=== PATIENT | male | born 1970 | race Caucasian/White ===

== ENCOUNTER 2020-02-16 06:20 | Outpatient (REF) | payer BC, SELFPAY ==
[2020-02-16 11:24] LABS: MANUAL DIFF FLAG NO
[2020-02-16 11:42] LABS: Basophils Percent Auto 0.5 % (0-2); Eosinophils Absolute Auto 0.1 X10*3/uL (0.0-0.4); Eosinophils Percent Auto 1.6 % (0-4); Hematocrit 42.2 % (42-52); Hemoglobin 14.4 g/dl (14.0-18.0); Imm Gran Abs Auto 0.01 X10*3/uL (0.00-0.03); Imm Gran Pct Auto 0.2 % (0.0-0.4); Lymphocytes Absolute Auto 1.9 X10*3/uL (1.2-4.9); Lymphocytes Percent Auto 35.1 % (20-40); Mean Corpuscular HGB Conc 34.1 g/dl (31.0-36.0); Mean Corpuscular Hemoglobin 31.1 pg (27.0-33.0); Mean Corpuscular Volume 91.1 fL (80-98); Mean Platelet Volume 9.5 fL (9.4-12.4); Monocytes Absolute Auto 0.7 X10*3/uL (0.1-1.2); Neutrophils Absolute Auto 2.7 X10*3/uL (2.0-8.3); Neutrophils Percent Auto 49.6 % (45-73); Platelet Count 296 X10*3/uL (160-400); Red Blood Count 4.63 X10*6/uL (4.60-5.80); White Blood Count 5.5 X10*3/uL (4.8-10.8)
[2020-02-16 12:16] LABS: Alanine Aminotransferase 17 U/L (0-40); Albumin Level 4.4 g/dL (3.5-5.0); Alkaline Phosphatase 59 U/L (39-117); Anion Gap 11 (12-20); Aspartate Amino Transferase 25 U/L (5-37); Bilirubin Total 1.3 mg/dL (0.0-1.0); Blood Urea Nitrogen 10 mg/dL (9-16); Calcium 8.5 mg/dL (8.4-10.2); Carbon Dioxide 29 mmol/L (22-29); Chloride 103 mmol/L (96-108); Cholesterol 196 mg/dL; Estimated Glomerular Filt Rate > 60; Glucose Fasting 86 mg/dL (60-99); HDL Cholesterol 58 mg/dL; LDL Cholesterol Calculated 122 mg/dl; Potassium 4.2 mmol/l (3.3-5.1); Sodium 139 mmol/L (135-145); Total Protein 7.1 g/dL (6.5-8.0); Triglycerides 83 mg/dL
== END 2020-02-16 06:21 | disposition home or self-care (01) ==
LOC: HO.HMGCLDS 06:20
PROVIDERS: PCP Internal Medicine; Visit Provider Internal Medicine
DX: Z00.00 Encounter for general adult medical examination without abnormal findings (principal)
CPT/HCPCS: 36415; 80053; 80061; 85025

== ENCOUNTER 2020-09-12 06:05 | Outpatient (REF) | payer BC, SELFPAY ==
[2020-09-12 11:33] LABS: MANUAL DIFF FLAG NO
[2020-09-12 11:48] LABS: Basophils Absolute Auto 0.1 X10*3/uL (0.0-0.2); Basophils Percent Auto 0.8 % (0-2); Eosinophils Absolute Auto 0.1 X10*3/uL (0.0-0.4); Eosinophils Percent Auto 1.8 % (0-4); Hematocrit 43.4 % (42-52); Hemoglobin 14.9 g/dl (14.0-18.0); Imm Gran Abs Auto 0.01 X10*3/uL (0.00-0.03); Imm Gran Pct Auto 0.2 % (0.0-0.4); Lymphocytes Absolute Auto 2.3 X10*3/uL (1.2-4.9); Lymphocytes Percent Auto 38.2 % (20-40); Mean Corpuscular HGB Conc 34.3 g/dl (31.0-36.0); Mean Corpuscular Hemoglobin 31.2 pg (27.0-33.0); Mean Corpuscular Volume 90.8 fL (80-98); Mean Platelet Volume 9.5 fL (9.4-12.4); Monocytes Absolute Auto 0.8 X10*3/uL (0.1-1.2); Monocytes Percent Auto 12.8 % (2-11); Neutrophils Absolute Auto 2.8 X10*3/uL (2.0-8.3); Neutrophils Percent Auto 46.2 % (45-73); Platelet Count 304 X10*3/uL (160-400); Red Blood Count 4.78 X10*6/uL (4.60-5.80); Red Cell Distribution Width 12.4 % (11.0-16.0)
[2020-09-12 12:22] LABS: Prostate Specific Antigen 0.63 ng/mL (<0.05-4.0)
[2020-09-12 12:32] LABS: Anion Gap 14 (12-20); Blood Urea Nitrogen 13 mg/dL (9-16); Calcium 9.5 mg/dL (8.4-10.2); Carbon Dioxide 29 mmol/L (22-29); Chloride 101 mmol/L (96-108); Estimated Glomerular Filt Rate > 60; Glucose Random 78 mg/dL (60-115); Potassium 4.3 mmol/L (3.3-5.1); Sodium 140 mmol/L (135-145)
== END 2020-09-12 06:06 | disposition home or self-care (01) ==
LOC: HO.HMGCLDS 06:05
PROVIDERS: PCP Internal Medicine; Visit Provider Internal Medicine
DX: R03.0 Elevated blood-pressure reading, without diagnosis of hypertension (principal); Z80.42 Family history of malignant neoplasm of prostate; Z12.5 Encounter for screening for malignant neoplasm of prostate
CPT/HCPCS: 36415; 80048; 84153; 85025

== ENCOUNTER 2022-05-16 07:19 | Day surgery (SDC) | payer BC, SELFPAY ==
[2022-05-16 07:31] VITALS: BMI 25.7
[2022-05-16 07:35] VITALS: BP 156/77; PULSE 50; RESP 16; TEMP 36.3; O2SAT 100
[2022-05-16] MEDS: Lactated Ringers 1,000 ML 50 ML IVCONT (07:46)
--- NOTE | 2022-05-16 08:10 | P.CONAN_ITS ---
HPI - Anesthesia Eval Consult details Narrative: Colonoscopy [facility] Past Medical History Medical History (Updated 05/15/22 @ 10:18 by Alena Carlson RN) Borderline anemia HTN (hypertension) Family History Family history of problems with anesthesia: No Surgical History History of Problems with Anesthesia: No Social History Social History Patient Tobacco Use Status: Never used Tobacco Use of substances other than those prescribed or required for medical reasons: No Are you DNR?: No Advance Directives: No Advance Directives Information Provided: Yes Meds Allergies Allergy/AdvReac Type Severity Reaction Status Date / Time No Known Allergies Allergy Unverified 05/15/22 08:43 Active Medications: Current Medications Lactated Ringer's (Lr) 1,000 mls @ 50 mls/hr IVCONT .Q20H MAMADOU Last Admin: 05/16/22 07:46 Dose: 50 mls/hr Sodium Biphosphate/Sodium Phosphate (Sodium Phosphate,Baker-Dibasic 133 Ml Enema) 133 ml AL ONCE PRN PRN Reason: Poor Colonoscopy Prep Results Home Medications Medication Instructions Recorded Confirmed Last Taken Type Fish Oil 05/15/22 05/02/22 History magnesium 05/15/22 Unknown History multivitamin 05/15/22 05/15/22 Unknown History Exam Exam Date and Time: May 16, 2022 0810 Height,Weight and Vital Signs: Height 5 ft 3 in Weight 65.771 kg Last Vital Signs Temp 97.4 F 05/16/22 07:35 Pulse 50 05/16/22 07:35 Resp 16 05/16/22 07:35 BP 156/77 H 05/16/22 07:35 Pulse Ox 100 05/16/22 07:35 O2 Del Method 05/16/22 07:35 Airway Mallampati Class: I TM Dist: >3cm Neck ROM: Full Loose/Missing/Broken Teeth: No Heart: rrr Lungs: cta Assessment and Plan Final Anesthetic Review Family History of Problems with Anesthesia: No History of Problems with Anesthesia: No NPO: Yes ASA Class: I Final Preanesthetic Review: Meds/Allgs Chart Reviewed, Consent Obtained/Reviewed and Anes Risks/Benef Reviewed Patient Risk: Low Procedure Risk: Low Anesthetic Plan Anesthetic Plan: MAC: Disposition: Standard PACU
--- NOTE | 2022-05-16 09:23 | PM.OP ---
Brief Operative Note Date of Service: 05/16/22 Pre-op diagnosis: Screening Post-op diagnosis: other (Diverticulosis) Procedure: Colonoscopy to the cecum Surgeon: Zeyad Cardoso Anesthesia: MAC Was an Director Learning And Development used for this Procedure?: No Estimated blood loss (mL): 0 Pathology: none sent Condition: stable Disposition: PACU
[2022-05-16 09:26] VITALS: BP 116/69; PULSE 57; RESP 18; TEMP 36.2; O2SAT 98
[2022-05-16 09:41] VITALS: BP 117/69; PULSE 55; RESP 18; TEMP 36.8; O2SAT 100
[2022-05-16 09:56] VITALS: BP 123/78; PULSE 44; RESP 18; TEMP 36.3; O2SAT 100
--- NOTE | 2022-05-16 10:34 | OP_ITS ---
SURGEON: Zeyad Cardoso MD INDICATIONS: The patient presents for evaluation of colorectal cancer screening. Full consent was obtained from him for this, including risks of bleeding and perforation. PREOPERATIVE DIAGNOSIS: Colorectal cancer screening. POSTOPERATIVE DIAGNOSIS: Colorectal cancer screening, mild sigmoid diverticulosis, and small internal hemorrhoids. PROCEDURE PERFORMED: Colonoscopy to the cecum. ESTIMATED BLOOD LOSS: COMPLICATIONS: ANESTHESIA: Monitored anesthesia care. ASSISTANTS: SPECIMENS: PROCEDURE IN DETAIL: The patient was placed in left lateral decubitus position. The digital rectal exam revealed no abnormalities. The Olympus video pediatric colonoscope was entered into the rectum and advanced easily to the cecum. Once in the cecum, I did identify normal appearing cecal polyps. The appendicial orifice reveal normal appearing cecal pouch with appendiceal orifice and normal-appearing ileocecal valve. The entire cecum and ileocecal valve appeared normal. The scope was then slowly withdrawn assessing all mucosal surfaces carefully. Preparation was excellent. I did not visualize any sign of polyps, colitis, or angiodysplasias. There were occasional diverticula in the sigmoid colon. In the rectum, scope was retroflexed, visualizing small internal hemorrhoids, but no other pathology. The rectal mucosa appeared normal. The scope was straightened and withdrawn from the patient. He tolerated the procedure well and was returned to the recovery area in stable condition. IMPRESSION: 1. Occasional sigmoid diverticulosis. 2. Small internal hemorrhoids. PLAN: Given his negative exam and negative family history, I would recommend a repeat colonoscopy in 10 years for further screening. He will otherwise see me on a p.r.n. basis. Zeyad Cardoso MD RMW/MODL / [id number] MTDD
== END 2022-05-16 10:10 | disposition home or self-care (01) ==
PROVIDERS: PCP Internal Medicine; Visit Provider Internal Medicine
PROC: 0DJD8ZZ Inspection of Lower Intestinal Tract, Via Natural or Artificial Opening Endoscopic (ICD-10-PCS; CPT 45378; principal; 2022-05-16 08:30)
DX: Z12.11 Encounter for screening for malignant neoplasm of colon (principal); K57.30 Diverticulosis of large intestine without perforation or abscess without bleeding; K55.30 Necrotizing enterocolitis, unspecified; K64.8 Other hemorrhoids; I10 Essential (primary) hypertension
CPT/HCPCS: 45378

== ENCOUNTER 2022-10-17 06:01 | Outpatient (REF) | payer BC, SELFPAY ==
[2022-10-17 11:32] LABS: MANUAL DIFF FLAG NO
[2022-10-17 11:50] LABS: Basophils Percent Auto 0.9 % (0-2); Eosinophils Absolute Auto 0.1 X10*3/uL (0.0-0.4); Eosinophils Percent Auto 2.3 % (0-4); Hemoglobin 13.9 g/dl (14.0-18.0); Imm Gran Abs Auto 0.01 X10*3/uL (0.00-0.03); Imm Gran Pct Auto 0.2 % (0.0-0.4); Lymphocytes Absolute Auto 1.4 X10*3/uL (1.2-4.9); Mean Corpuscular HGB Conc 33.9 g/dl (31.0-36.0); Mean Corpuscular Hemoglobin 31.3 pg (27.0-33.0); Mean Corpuscular Volume 92.3 fL (80.0-98.0); Mean Platelet Volume 10.2 fL (9.4-12.4); Monocytes Absolute Auto 0.6 X10*3/uL (0.1-1.2); Monocytes Percent Auto 13.4 % (2-11); Neutrophils Absolute Auto 2.5 x10*3/uL (2.0-8.3); Neutrophils Percent Auto 54.2 % (45-73); Platelet Count 295 X10*3/uL (160-400); Red Blood Count 4.44 X10*6/uL (4.60-5.80); Red Cell Distribution Width 12.5 % (11.0-16.0); White Blood Count 4.7 X10*3/uL (4.8-10.8)
[2022-10-17 12:41] LABS: Prostate Specific Antigen 0.43 ng/mL (<0.05-4.0)
[2022-10-17 14:21] LABS: Alanine Aminotransferase 21 U/L (0-40); Albumin Level 4.3 g/dL (3.5-5.0); Alkaline Phosphatase 51 U/L (39-117); Anion Gap 14 (12-20); Aspartate Amino Transferase 24 U/L (5-37); Bilirubin Total 1.6 mg/dL (0.0-1.0); Blood Urea Nitrogen 11 mg/dL (9-16); Calcium 9.4 mg/dL (8.4-10.2); Carbon Dioxide 25 mmol/L (22-29); Chloride 106 mmol/L (96-108); Cholesterol 167 mg/dL; Estimated Glomerular Filt Rate > 60; Glucose Fasting 90 mg/dL (60-99); HDL Cholesterol 63 mg/dL; LDL Cholesterol Calculated 93 mg/dl; Potassium 3.9 mmol/L (3.3-5.1); Sodium 141 mmol/L (135-145); Total Protein 6.9 g/dL (6.5-8.0); Triglycerides 55 mg/dL
== END 2022-10-17 06:02 | disposition home or self-care (01) ==
LOC: HO.HMGCLDS 06:01
PROVIDERS: PCP Internal Medicine; Visit Provider Internal Medicine
DX: Z00.00 Encounter for general adult medical examination without abnormal findings (principal); Z12.5 Encounter for screening for malignant neoplasm of prostate; I25.10 Atherosclerotic heart disease of native coronary artery without angina pectoris; I42.9 Cardiomyopathy, unspecified
CPT/HCPCS: 36415; 80053; 80061; 84153; 85025

== ENCOUNTER 2024-10-19 08:58 | Outpatient (AMB) | payer BC, SELFPAY ==
--- NOTE | 2024-10-19 08:55 | A.OFFPC_ITS ---
Vital Signs 10/19/24 09:01 Height 5 ft 3 in Weight 60.328 kg BMI 23.6 BP 134/80 Blood Pressure Location Lt brachial Position Sitting Respiration 14 Pulse 54 Pulse Source Pulse Oximeter Temp 97.0 F Temp Source Temporal Artery Scan Pulse Oximetry (%) 99 Oxygen Delivery Method Room Air Intake Visit Reasons: routine Pathology Supervisor Required: No Accompanied by: Self / Same As Patient Allergies No Known Allergies Allergy (Verified 10/19/24 08:55) HPI HPI Comments History of Present Illness Details 54-year-old male with history of diverti culosis, anemia presents to the office today for management of chronic conditions, to establish care, and for annual physical exam. He currently lives at home with his and 2 children and feels safe there. He is employed at the [employer] and enjoys this. He is an avid runner and does report he follows a healthy diet. He reports he does go to the eye doctor annually as well as the dentist. He does not always wear sunscreen but denies any concerning lesions Concerns: None and 2 daughters, safe at home. works as [employer] Health maintenance: A screening colonoscopy 2022 with 10 year follow-up advised. Did show diverticulitis but no colon polyps Due for screening PSA Reviewed past medical, surgical, family, social history ROS: General: No fevers, malaise, unintentional weight loss HEENT: No blurred vision, diplopia. No sore throat, nasal congestion, rhinorrhea, sinus pain, ear pain. No hearing loss Neck - no adenopathy Cardiovascular: No chest pain, palpitations, or leg edema Respiratory: No shortness of breath, wheezing, cough GI: No dysphagia, odynophagia, globus sensation. No abdominal pain, nausea, vomiting, diarrhea, constipation, melena, hematochezia : No dysuria, hematuria, increased urinary frequency, decreased urinary output. No testicular swelling or pain. No penile discharge MSK: No myalgia, back pain, arthralgias Neuro: No headaches, weakness, paresthesias Psych: no depression/anxiery. No AH/VH. No SI/HI Skin: No rashes or lesions EXAM: Constitutional - Awake and Alert, No apparent distress Eyes - PERRLA, EOMI. Anicteric Ears - external ears normal, canals clear, TMs intact and pearly hamlin with good cone of light Nose- septum midline, nares clear, no sinus tenderness Mouth/throat- mucosa moist, tongue and uvula midline, no erythema/edema or tonsillar adenopathy. Neck-trachea midline, thyroid symmetric without palpable nodules, no adenopathy Cardiovascular - S1S2, RRR, No edema Respiratory - Normal lung expansion, Normal respiratory effort, No respiratory distress, CTA bilaterally Gastrointestinal - NT / ND; +BS; No rebound or guarding - No CVA tenderness Extremities - no calf tenderness bilaterally, no swelling Musculoskeletal - Normal inspection, normal ROM Skin - Warm/Dry, no concerning lesions Neurological - Alert & oriented x3, CN II-XII in tact, 5/5 strength BUE and BLE, 2+ patellar reflexes, sensation intact Psychological - Appropriate affect [facility] Medical History (Updated 10/19/24 @ 09:07 by ARACELI Delgado) Diverticulosis Borderline anemia HTN (hypertension) Surgical History (Updated 10/18/24 @ 15:37 by Zahra Rider) History of colonoscopy (~05/16/22) Family History (Updated 10/19/24 @ 09:15 by ARACELI Delgado) Father Prostate cancer Mother Dementia Lymphoma Maternal Grandfather Lung cancer Maternal Grandmother Dementia Sister Alcohol use disorder Social History Alcohol intake: current Alcohol intake frequency: a few times a week Patient Tobacco Use Status: Never used Tobacco Physical exam (Primary Care) Vital Signs: Last Vital Signs Temp 97.0 F 10/19/24 09:01 Pulse 54 10/19/24 09:01 Resp 14 10/19/24 09:01 BP 134/80 10/19/24 09:01 Pulse Ox 99 10/19/24 09:01 Oxygen Delivery Method Room Air 10/19/24 09:01 BMI result Body Mass Index 23.6 Tobacco/Smoking Status: Tobacco use Status Patient Tobacco Use Status Never used Tobacco 10/19/24 08:58 Coding Level of Care Code New Pt Prev Care 40-64y(88328) Diagnoses Routine medical exam Z00.00 Anemia D64.9 Assessment & Plan Assessment & Plan (1) Routine medical exam: Code(s): Z00.00 - Encounter for general adult medical examination without abnormal findings Plan: 54-year-old male presenting for annual exam and to establish care. Plan as below (2) Anemia: Code(s): D64.9 - Anemia, unspecified Category: Medical Plan: CBC ordered. Plan Routine screening labs as ordered below Continue with screening colonoscopies and PSA Continue following for annual skin exams and use sun protection Annual eye exams Wear seat belt in car Recommend regular exercise and healthy diet Follow up in 6 months Orders: Orders Basic Metabolic Panel Today D64.9 - Anemia, unspecified, I10 - Essential (primary) hypertension, Z13.220 - Encounter for screening for lipoid disorders Complete Blood Count Auto Diff Today D64.9 - Anemia, unspecified, I10 - Essential (primary) hypertension, Z13.220 - Encounter for screening for lipoid disorders Lipid Panel Today D64.9 - Anemia, unspecified, I10 - Essential (primary) hypertension, Z13.220 - Encounter for screening for lipoid disorders Liver Panel Today D64.9 - Anemia, unspecified, I10 - Essential (primary) hypertension, Z13.220 - Encounter for screening for lipoid disorders Prostate Specific Antigen Today D64.9 - Anemia, unspecified, I10 - Essential (primary) hypertension, Z13.220 - Encounter for screening for lipoid disorders
[2024-10-19 09:01] VITALS: BP 134/80; PULSE 54; RESP 14; TEMP 36.1; O2SAT 99; BMI 23.6
== END 2024-10-19 09:25 | disposition home or self-care (01) ==
LOC: HO.HMCHD 08:58
PROVIDERS: PCP Internal Medicine; Visit Provider Physician Assistant
DX: Z00.00 Encounter for general adult medical examination without abnormal findings (principal); D64.9 Anemia, unspecified

== ENCOUNTER 2024-10-19 09:31 | Outpatient (REF) | payer BC, SELFPAY ==
[2024-10-19 13:17] LABS: MANUAL DIFF FLAG NO
[2024-10-19 13:21] LABS: Hematocrit 40.4 % (42.0-52.0); Hemoglobin 14.1 g/dl (14.0-18.0); Imm Gran Abs Auto 0.02 X10*3/uL (0.00-0.03); Imm Gran Pct Auto 0.3 % (0.0-0.4); Lymphocytes Absolute Auto 1.5 X10*3/uL (1.2-4.9); Mean Corpuscular HGB Conc 34.9 g/dl (31.0-36.0); Mean Corpuscular Hemoglobin 31.2 pg (27.0-33.0); Mean Corpuscular Volume 89.4 fL (80.0-98.0); NRBC Abs Auto 0.000 X10*3/uL (0.0-0.012); NRBC Pct Auto 0.0 /100WBC (0.0-0.2); Platelet Count 284 X10*3/uL (160-400); Red Blood Count 4.52 X10*6/uL (4.60-5.80); White Blood Count 7.6 X10*3/uL (4.8-10.8)
[2024-10-19 13:29] LABS: Alanine Aminotransferase 32 U/L (0-40); Albumin Level 4.7 g/dL (3.5-5.0); Alkaline Phosphatase 53 U/L (39-117); Anion Gap 11 (12-20); Aspartate Amino Transferase 39 U/L (5-37); Blood Urea Nitrogen 13 mg/dL (9-16); Calcium 9.3 mg/dL (8.4-10.2); Carbon Dioxide 29 mmol/L (22-29); Chloride 104 mmol/L (96-108); Cholesterol 202 mg/dL (<200); Estimated Glomerular Filt Rate > 60; HDL Cholesterol 63 mg/dL (>40); Potassium 4.7 mmol/L (3.3-5.1); Sodium 139 mmol/L (135-145); Total Protein 7.1 g/dL (6.5-8.0); Triglycerides 92 mg/dL (<150)
[2024-10-19 13:50] LABS: Prostate Specific Antigen 0.93 ng/mL (<0.05-4.0)
== END 2024-10-19 09:32 | disposition home or self-care (01) ==
LOC: HO.10HDL 09:31
PROVIDERS: Visit Provider Physician Assistant
DX: Z13.220 Encounter for screening for lipoid disorders (principal); Z12.5 Encounter for screening for malignant neoplasm of prostate; I10 Essential (primary) hypertension; D64.9 Anemia, unspecified
CPT/HCPCS: 36415; 80048; 80061; 80076; 84153; 85025

== ENCOUNTER 2025-04-03 13:58 | Outpatient (AMB) | payer BC, SELFPAY ==
--- NOTE | 2025-04-03 14:04 | A.OFFPC_ITS ---
Vital Signs 04/03/25 14:06 Height 5 ft 3 in Weight 137 lb 6 oz BMI 24.3 BP 136/84 Respiration 14 Pulse 58 Pulse Source Pulse Oximeter Temp 98.6 F Temp Source Temporal Artery Scan Pulse Oximetry (%) 99 Oxygen Delivery Method Room Air Intake Visit Reasons: Diar GI Issues Slasher Tender Required: No Accompanied by: Self / Same As Patient Allergies No Known Allergies Allergy (Verified 04/03/25 14:04) Medication List - Last Reconciled 04/03/25 by ARACELI Dumont cholecalciferol (vitamin D3) 25 mcg PO DAILY coenzyme Q10 (CoQ-10) 100 mg PO DAILY [Fish Oil ] [magnesium ] [multivitamin ] psyllium husk (Metamucil Fiber (aspartame)) 1 packet PO DAILY simethicone 250 mg (2 x 125 mg) PO BID PRN Tobacco use date assessed: 04/03/25 Dental Screening Dental Screen Date: 04/03/25 Did you have a dental visit in the last 12 months?: Yes Did you have a dental problem in the last 6 months where you did not have access to dental care?: No Was dental information given to patient?: Patient has dentist HPI HPI Comments History of Present Illness Details History of Present Illness The patient is a 54 year old male here in urgent visit presenting with gastrointestinal symptoms that started around March 16 or , which he initially attributed to eating leftovers. He reports being very gassy in the mornings with uncomfortable, but not sharp, pain, and his bowel movements have been watery. The symptoms have been intermittent, with periods of improvement followed by recurrence. He visited an urgent care on March 25 and was told he had a gastrointestinal issue without any labs being performed. He tried Imodium or Pepto-Bismol, which provided slight relief from gas but did not change his bowel movements. He reports approximately three bowel movements per day and has exper ienced episodes of fecal incontinence when passing gas. He denies any nausea. He has a past history of constipation, which he describes as being a worse experience. Medical History: - History of constipation Medications: - The patient has tried Imodium and Pept o-Bismol for his current symptoms. Patient was informed and verbally consented to the use of an ambient scribe for clinic note documentation during this visit. [facility] Medical History (Updated 04/03/25 @ 14:28 by ARACELI Dumont) Borderline anemia Diarrhea Diverticulosis HTN (hypertension) Surgical History (Updated 10/18/24 @ 15:37 by Zahra Rider) History of colonoscopy (~05/16/22) Family History (Updated 10/19/24 @ 09:15 by ARACELI Delgado) Father Prostate cancer Mother Dementia Lymphoma Maternal Grandfather Lung cancer Maternal Grandmother Dementia Sister Alcohol use disorder Social History (Updated 10/19/24 @ 09:15 by ARACELI Delgado) Housing: House Alcohol intake: current Alcohol intake frequency: a few times a week Patient Tobacco Use Status: Never used Tobacco e-Cigarette/Vaping Use: Never Used service: No Current occupational status: employed Current occupation: [employer]. Cognitive needs: No Hearing needs: No Vision needs: Yes (Rx glasses PRN) Review of Systems Narrative Review of Systems - Gastrointestinal: Reports excessive, audible gas with associated discomfort, and watery diarrhea occurring about three times a day for several weeks. - He also reports episodes of fecal incontinence. - He denies nausea. Physical exam (Primary Care) Vital Signs: Last Vital Signs Temp 98.6 F 04/03/25 14:06 Pulse 58 04/03/25 14:06 Resp 14 04/03/25 14:06 BP 136/84 04/03/25 14:06 Pulse Ox 99 04/03/25 14:06 Oxygen Delivery Method Room Air 04/03/25 14:06 BMI result Body Mass Index 24.3 GENERAL Well developed, Well nourished, in no apparent distress HEENT Head-Normocephalic Neck- Supple, No lymphadenopathy, thyroid WNL RESPIRATORY Normal I:E, Clear to auscultation CARDIOVASCULAR Regular, rate and rhythm, No murmurs or rubs GASTROINTESTINAL Soft, nontender, increased bowel sounds, no masses NEUROLOGICAL Gait normal PSYCHIATRIC Oriented to person, place and time Mood and affect WNL Appearance WNL Speech WNL Thought processes WNL Tobacco/Smoking Status: Tobacco use Status Tobacco use date assessed 04/03/25 04/03/25 14:08 Patient Tobacco Use Status Never used Tobacco 04/03/25 14:08 e-Cigarette/Vaping Use Never Used 04/03/25 14:08 Narrative Physical Exam - Abdomen: Non-tender to palpation in all quadrants. Coding Level of Care Code Established Pt Tele Est Pt Level 3 (90505) Established Pt Add On Problem Visit Only Patient Type Established Diagnoses Diarrhea R19.7 Time Spent (min) 25 Comment Time spent on H&P, Patient education and orders Assessment & Plan Assessment & Plan (1) Diarrhea: Code(s): R19.7 - Diarrhea, unspecified Category: Medical Plan: Will get labs. Will recommend Metamucil and Simethicone. Patient to follow up as needed if symptoms persist or worsen. Plan Plan Patient was informed and verbally consented to the use of an ambient scribe for clinic note documentation during this visit. 1. Diarrhea And Flatulence The patient's persistent symptoms could be due to a lingering virus; however, other etiologies must be ruled out given the duration. Blood work and stool testing will be ordered to rule out infectious causes such as Salmonella, Shigella, parasites, or ova. Simethicone will be prescribed for symptomatic relief of gas. It is also recommended that the patient start a fiber supplement such as Metamucil, Citrucel, or Benefiber to help absorb water and firm up the stool, with a specific instruction to avoid MiraLax as it could worsen his symptoms. The patient was advised to maintain adequate fluid intake to prevent dehydration. Follow-up will occur after test results are received. Discussion Notes I discussed with the patient that his persistent symptoms, while possibly from a lingering virus, warrant further investigation due to their duration. I explained the plan to order blood tests and stool studies to rule out bacterial or parasitic infections. I recommended starting a fiber supplement like Metamucil to help firm up his stools and explicitly advised against MiraLax, as it would likely worsen his diarrhea. I also sent a prescription for simethicone to his pharmacy for gas relief. I instructed him on how to proceed with the lab work and medication pickup, and we will follow up on the test results. Patient Instructions - Go to the hospital lab to have your blood drawn and to pick up truck driver containers for a stool sample. - A prescription for simethicone (for gas) and a fiber supplement (Metamucil) have been sent to your pharmacy, [facility] on [address]. - If your insurance does not cover the Metamucil, please buy it or a similar fiber supplement (like Citrucel or Benefiber) over the counter. - Do NOT use MiraLax, as it can make your diarrhea worse. - Take the fiber powder to help make your stool more firm. - Take the simethicone when you feel very gassy to help settle it down. - Make sure to drink plenty of fluids to stay hydrated. - We will contact you when your test results are available. Orders: Orders Complete Blood Count Auto Diff Today R19.7 - Diarrhea, unspecified Ova and Parasite Today R19.7 - Diarrhea, unspecified GI Panel Today R19.7 - Diarrhea, unspecified Medications: New psyllium husk (Metamucil Fiber (aspartame)) 1 packet PO DAILY 30 ea 0RF simethicone 250 mg (2 x 125 mg) PO BID PRN 60 caps 0RF abdominal distention
[2025-04-03 14:06] VITALS: BP 136/84; PULSE 58; RESP 14; TEMP 37; O2SAT 99; BMI 24.3
== END 2025-04-03 15:13 | disposition home or self-care (01) ==
LOC: HO.HMCHD 13:58
PROVIDERS: PCP Physician Assistant; Visit Provider Physician Assistant Medical
DX: R19.7 Diarrhea, unspecified (principal)

== ENCOUNTER 2025-04-03 13:58 | Outpatient (REF) | payer BC, SELFPAY ==
[2025-04-03 14:42] LABS: MANUAL DIFF FLAG NO
[2025-04-03 17:21] LABS: Hematocrit 38.1 % (42.0-52.0); Hemoglobin 13.1 g/dl (14.0-18.0); Imm Gran Abs Auto 0.01 X10*3/uL (0.00-0.03); Imm Gran Pct Auto 0.2 % (0.0-0.4); Lymphocytes Absolute Auto 1.6 X10*3/uL (1.2-4.9); Mean Corpuscular HGB Conc 34.4 g/dl (31.0-36.0); Mean Corpuscular Hemoglobin 31.4 pg (27.0-33.0); Mean Corpuscular Volume 91.4 fL (80.0-98.0); NRBC Abs Auto 0.000 X10*3/uL (0.0-0.012); NRBC Pct Auto 0.0 /100WBC (0.0-0.2); Platelet Count 290 X10*3/uL (160-400); Red Blood Count 4.17 X10*6/uL (4.60-5.80); White Blood Count 6.7 X10*3/uL (4.8-10.8)
== END 2025-04-03 13:59 | disposition home or self-care (01) ==
LOC: HO.LAB 13:58
PROVIDERS: PCP Physician Assistant; Visit Provider Physician Assistant Medical
DX: R19.7 Diarrhea, unspecified (principal)
CPT/HCPCS: 36415; 85025

== ENCOUNTER 2025-04-04 09:12 | Outpatient (REF) | payer BC, SELFPAY ==
[2025-04-04 12:08] LABS: E. coli EAEC Not Detected (Not Detect.); E. coli EPEC Not Detected (Not Detect.); E. coli ETEC Not Detected (Not Detect.); E. coli STEC Not Detected (Not Detect.); Shigella sp./EIEC Not Detected (Not Detect.)
== END 2025-04-04 09:13 | disposition home or self-care (01) ==
LOC: HO.LNP 09:12
PROVIDERS: Visit Provider Physician Assistant Medical
DX: R19.7 Diarrhea, unspecified (principal)
CPT/HCPCS: 87177; 87209; 87507